=== PATIENT | female | born 1990 | race Caucasian/White ===

== ENCOUNTER 2023-12-23 15:41 | Inpatient (IN) | payer MEDICAID ==
[~2023-12-23] VITALS: Ht 157.5 cm; Wt 62.8 kg
[~2023-12-23 15:41] MED LIST: DOXY100C5 PO; FAMO-132 PO; PRED10TA PO
[2023-12-23 15:55] VITALS: BP_SYST 126; PULSE 106; RESP 22; TEMP 98.3; O2SAT 98
[2023-12-23 16:55] LABS: BASOPHILS % (AUTO) 0.1 % (0.0-2.0); EOSINOPHILS % (AUTO) 0.1 % (0.0-4.0); HEMATOCRIT 35.2 % (36-48); HEMOGLOBIN 12.1 g/dL (12.0-16.0); LYMPHOCYTES # (AUTO) 0.9 K/uL (1.0-5.5); LYMPHOCYTES % (AUTO) 7.4 % (20.5-51.5); MEAN CORPUSCULAR HEMOGLOBIN 32 pg (27-31); MEAN CORPUSCULAR HGB CONC 34 % (32-36); MEAN CORPUSCULAR VOLUME 92 fL (79.0-98.0); MONOCYTES # (AUTO) 0.3 K/uL (0.0-1.0); MONOCYTES % (AUTO) 2.5 % (1.7-9.3); NEUTROPHILS # (AUTO) 11.3 K/uL (1.8-7.7); NEUTROPHILS % (AUTO) 89.9 % (40.0-70.0); PLATELET COUNT (AUTO) 256 K/uL (130-430); RED BLOOD CELL COUNT(AUTO) 3.82 MIL/uL (4.2-6.2); RED CELL DISTRIBUTION WIDTH 14.8 % (9.0-15.0); WHITE BLOOD COUNT (AUTO) 12.5 K/uL (4.8-10.8)
[2023-12-23 17:08] LABS: BILIRUBIN,URINE NEGATIVE (NEGATIVE); BLOOD, URINE 2+ (NEGATIVE); CLARITY/URINE CLEAR (CLEAR); COLOR,URINE YELLOW (YELLOW); GLUCOSE,URINE NEGATIVE (NEGATIVE); KETONES,URINE NEGATIVE (NEGATIVE); LEUKOCYTE ESTERASE ,URINE NEGATIVE (NEGATIVE); NITRITE, URINE NEGATIVE (NEGATIVE); PROTEIN URINE 3+ (NEGATIVE); UROBILINOGEN,URINE 0.2 (0.2-1.0)
[2023-12-23 17:09] LABS: ALBUMIN 1.8 g/dL (3.4-4.8); BILIRUBIN,DIRECT 0.1 mg/dL (0.0-0.3); CALCIUM 8.3 mg/dL (8.4-11.0); CREATININE 0.88 mg/dL (0.55-1.30); POTASSIUM 4.1 mmol/L (3.5-5.1); TOTAL BILIRUBIN 0.2 mg/dL (0.0-1.0); TOTAL PROTEIN, SERUM 6.6 g/dL (6.4-8.3)
[2023-12-23 17:14] LABS: BACTERIA,URINE RARE /HPF (None Seen); MUCUS,URINE None Seen /LPF (None Seen); RBC,URINE 0-3 /HPF (0-3); WBC,URINE 0-3 /HPF (0-3)
[2023-12-23] MEDS ORDERED: PIPERACILLIN/TAZOBACTAM 3.375 GM/VIAL (ZOSYN) IV ONE (18:13)
[2023-12-23] MEDS: PIPERACILLIN/TAZO 3.375 GM in D5W 50 ML IV ONE (18:16)
[2023-12-23 18:24] LABS: INR 0.9 (0.8-1.2); PROTHROMBIN TIME 9.4 SECS (9.5-12.5)
[2023-12-23] MEDS: methylPREDNISolone SOD SUCC/PF 62.5 MG/ML VIAL IVP ONE (19:21)
[2023-12-23] MEDS ORDERED: HYDR200T80 PO (19:48)
[2023-12-23] MEDS ORDERED: PRED20TA (19:51)
[2023-12-23] MEDS ORDERED: MORPHINE 4 MG INJ. 4 MG/ML VIAL IVP PRN (22:00)
[2023-12-23] MEDS ORDERED: ONDANSETRON HCL 4 MG/2 ML VIAL IVP PRN (22:00)
[2023-12-24 01:18] VITALS: BP_SYST 117; PULSE 73; RESP 18; TEMP 97.4
[2023-12-24] MEDS ORDERED: PIPERACILLIN/TAZO 3.375 GM in NS 50 ML IV SCH (06:00)
[2023-12-24 06:30] LABS: BASOPHILS % (AUTO) 0.1 % (0.0-2.0); HEMATOCRIT 35.4 % (36-48); HEMOGLOBIN 12.1 g/dL (12.0-16.0); LYMPHOCYTES # (AUTO) 1.1 K/uL (1.0-5.5); LYMPHOCYTES % (AUTO) 12.1 % (20.5-51.5); MEAN CORPUSCULAR HEMOGLOBIN 32 pg (27-31); MEAN CORPUSCULAR HGB CONC 34 % (32-36); MEAN CORPUSCULAR VOLUME 94 fL (79.0-98.0); MONOCYTES # (AUTO) 0.2 K/uL (0.0-1.0); MONOCYTES % (AUTO) 2.4 % (1.7-9.3); NEUTROPHILS # (AUTO) 7.8 K/uL (1.8-7.7); NEUTROPHILS % (AUTO) 85.4 % (40.0-70.0); PLATELET COUNT (AUTO) 261 K/uL (130-430); RED BLOOD CELL COUNT(AUTO) 3.78 MIL/uL (4.2-6.2); RED CELL DISTRIBUTION WIDTH 14.8 % (9.0-15.0); WHITE BLOOD COUNT (AUTO) 9.1 K/uL (4.8-10.8)
[2023-12-24 06:46] LABS: ALBUMIN 1.7 g/dL (3.4-4.8); CALCIUM 8.1 mg/dL (8.4-11.0); CREATININE 0.7 mg/dL (0.55-1.30); POTASSIUM 4.6 mmol/L (3.5-5.1); TOTAL BILIRUBIN 0.2 mg/dL (0.0-1.0); TOTAL PROTEIN, SERUM 5.8 g/dL (6.4-8.3); URIC ACID 5.9 mg/dL (2.4-7.0)
[2023-12-24 08:02] VITALS: BP_SYST 100; PULSE 78; RESP 14; TEMP 97.2; O2SAT 96
[2023-12-24] MEDS: predniSONE 20 MG TABLET PO SCH (09:59)
[2023-12-24] MEDS: PANTOPRAZOLE SODIUM 40 MG TAB PO SCH (09:59)
[2023-12-24] MEDS: HYDROXYCHLOROQUINE SULFATE 200 MG TABLET PO SCH (09:59)
[2023-12-24 11:27] VITALS: BP_SYST 109; PULSE 84; RESP 16; TEMP 97.5; O2SAT 96
[2023-12-24] MEDS: ACETAMINOPHEN 325 MG TABLET PO PRN (13:59)
[2023-12-24 15:21] VITALS: BP_SYST 103; PULSE 73; RESP 16; TEMP 98.1; O2SAT 95
[2023-12-24 15:34] VITALS: BP_SYST 103; PULSE 80; RESP 16; TEMP 98.1; O2SAT 95
== END 2023-12-24 16:50 | disposition home or self-care (01) | DRG 346 ==
LOC: SED 15:41 → SMU 21:50
PROVIDERS: ADMIT Internal Medicine; ATTEND Internal Medicine
DX: M32.14 Glomerular disease in systemic lupus erythematosus (principal); E43 Unspecified severe protein-calorie malnutrition; R65.10 Systemic inflammatory response syndrome (SIRS) of non-infectious origin without acute organ dysfunction; N04.9 Nephrotic syndrome with unspecified morphologic changes; Z79.899 Other long term (current) drug therapy; Z88.2 Allergy status to sulfonamides; Z68.25 Body mass index [BMI] 25.0-25.9, adult
CPT/HCPCS: 36415; 71045; 76770; 80048; 80053; 80061; 80076; 81000; 81001; 81015; 83605; 83690; 84484; 84550; 84702; 85025; 85610; 85730; 87040; 87086; 93005; 96365; 96375; 99285; J2543; J2930; J7512

== ENCOUNTER 2024-01-26 12:17 | Emergency (ER) | payer MEDICAID ==
[~2024-01-26] VITALS: Ht 157.5 cm; Wt 68.0 kg
[~2024-01-26 12:17] MED LIST changes: -DOXY100C5 PO; -FAMO-132 PO; +HYDR200T80 PO; -PRED10TA PO; +PRED20TA
[2024-01-26 12:30] VITALS: BP_SYST 104; PULSE 123; RESP 18; TEMP 98.6; O2SAT 98
[2024-01-26] MEDS: ONDANSETRON 4 MG ODT TAB PO ONE (12:57)
[2024-01-26 13:01] LABS: BILIRUBIN,URINE NEGATIVE (NEGATIVE); BLOOD, URINE 2+ (NEGATIVE); CLARITY/URINE SLIGHTLY CLOUDY (CLEAR); COLOR,URINE Y (YELLOW); GLUCOSE,URINE NEGATIVE (NEGATIVE); KETONES,URINE NEGATIVE (NEGATIVE); LEUKOCYTE ESTERASE ,URINE NEGATIVE (NEGATIVE); NITRITE, URINE NEGATIVE (NEGATIVE); PROTEIN URINE 3+ (NEGATIVE); UROBILINOGEN,URINE 0.2 (0.2-1.0)
[2024-01-26 13:22] LABS: BACTERIA,URINE FEW /HPF (None Seen); WBC,URINE 0-3 /HPF (0-3)
[2024-01-26 13:29] LABS: BASOPHILS % (AUTO) 0.1 % (0.0-2.0); EOSINOPHILS % (AUTO) 0.1 % (0.0-4.0); HEMATOCRIT 42.9 % (36-48); HEMOGLOBIN 14.5 g/dL (12.0-16.0); LYMPHOCYTES # (AUTO) 1.9 K/uL (1.0-5.5); LYMPHOCYTES % (AUTO) 12.5 % (20.5-51.5); MEAN CORPUSCULAR HEMOGLOBIN 32 pg (27-31); MEAN CORPUSCULAR HGB CONC 34 % (32-36); MEAN CORPUSCULAR VOLUME 93 fL (79.0-98.0); MONOCYTES # (AUTO) 0.7 K/uL (0.0-1.0); MONOCYTES % (AUTO) 4.8 % (1.7-9.3); NEUTROPHILS # (AUTO) 12.3 K/uL (1.8-7.7); NEUTROPHILS % (AUTO) 82.5 % (40.0-70.0); PLATELET COUNT (AUTO) 349 K/uL (130-430); RED BLOOD CELL COUNT(AUTO) 4.59 MIL/uL (4.2-6.2); RED CELL DISTRIBUTION WIDTH 14.3 % (9.0-15.0); WHITE BLOOD COUNT (AUTO) 14.9 K/uL (4.8-10.8)
[2024-01-26] MEDS ORDERED: PRED10TA PO (13:32)
[2024-01-26] MEDS ORDERED: BELI200A SUBCUT (13:33)
[2024-01-26 13:34] LABS: SERUM HCG (QUALITATIVE) NEGATIVE (NEGATIVE)
[2024-01-26 13:37] LABS: ALANINE AMINOTRANSFERASE 27 U/L (12-78); ALBUMIN 1.5 g/dL (3.4-4.8); AMYLASE 51 U/L (0-100); ANION GAP 3 (5-15); ASPARTATE AMINOTRANSFERASE 20 U/L (10-37); BILIRUBIN,DIRECT < 0.1 mg/dL (0.0-0.3); CALCIUM 8.7 mg/dL (8.4-11.0); CARBON DIOXIDE 33 mmol/L (23-29); CHLORIDE 99 mmol/L (98-107); CREATININE 0.81 mg/dL (0.55-1.30); GFR AFRICAN AMERICAN 104 mL/min (>90); GFR NON AFRICAN-AMERICAN 86 mL/min (>90); GLUCOSE 82 mg/dL (74-106); LIPASE 27 U/L (16-77); POTASSIUM 3.6 mmol/L (3.5-5.1); SODIUM SERUM 135 mmol/L (136-145); TOTAL BILIRUBIN 0.3 mg/dL (0.0-1.0); TOTAL PROTEIN, SERUM 6.6 g/dL (6.4-8.3); UREA NITROGEN, BLOOD 8 mg/dL (8-21)
[2024-01-26] MEDS ORDERED: OMEP20CA15 PO (13:48)
[2024-01-26 13:58] VITALS: BP_SYST 108; PULSE 115; RESP 18; TEMP 98.6; O2SAT 94
== END 2024-01-26 13:58 | disposition home or self-care (01) ==
LOC: SED 12:17
DX: K29.70 Gastritis, unspecified, without bleeding (principal); R10.13 Epigastric pain; R11.2 Nausea with vomiting, unspecified; Z88.2 Allergy status to sulfonamides; Z79.899 Other long term (current) drug therapy
CPT/HCPCS: 99284; 76705; 80076; 80048; 81001; 82150; 84703; 83690; 85025; 36415; 81025; 83605; Q0162; 81000; 81015

== ENCOUNTER 2024-01-29 15:19 | Inpatient (IN) | payer MEDICAID ==
[~2024-01-29] VITALS: Ht 157.5 cm; Wt 61.4 kg
[~2024-01-29 15:19] MED LIST changes: +BELI200A SUBCUT; +OMEP20CA15 PO; +PRED10TA PO; -PRED20TA
[2024-01-29 16:11] VITALS: BP_SYST 110; PULSE 127; RESP 18; TEMP 98.6; O2SAT 95
[2024-01-29 17:47] LABS: BASOPHILS # (AUTO) 0.1 K/uL (0.0-0.2); BASOPHILS % (AUTO) 0.6 % (0.0-2.0); EOSINOPHILS % (AUTO) 0.1 % (0.0-4.0); HEMATOCRIT 39.9 % (36-48); HEMOGLOBIN 13.7 g/dL (12.0-16.0); LYMPHOCYTES # (AUTO) 1.5 K/uL (1.0-5.5); LYMPHOCYTES % (AUTO) 7.7 % (20.5-51.5); MEAN CORPUSCULAR HEMOGLOBIN 32 pg (27-31); MEAN CORPUSCULAR HGB CONC 34 % (32-36); MEAN CORPUSCULAR VOLUME 93 fL (79.0-98.0); MONOCYTES # (AUTO) 0.9 K/uL (0.0-1.0); MONOCYTES % (AUTO) 4.5 % (1.7-9.3); NEUTROPHILS # (AUTO) 16.9 K/uL (1.8-7.7); NEUTROPHILS % (AUTO) 87.1 % (40.0-70.0); PLATELET COUNT (AUTO) 428 K/uL (130-430); RED BLOOD CELL COUNT(AUTO) 4.29 MIL/uL (4.2-6.2); RED CELL DISTRIBUTION WIDTH 13.9 % (9.0-15.0); WHITE BLOOD COUNT (AUTO) 19.4 K/uL (4.8-10.8)
[2024-01-29 17:50] LABS: BILIRUBIN,URINE NEGATIVE (NEGATIVE); BLOOD, URINE TRACE (NEGATIVE); CLARITY/URINE CLEAR (CLEAR); COLOR,URINE YELLOW (YELLOW); GLUCOSE,URINE NEGATIVE (NEGATIVE); KETONES,URINE NEGATIVE (NEGATIVE); LEUKOCYTE ESTERASE ,URINE NEGATIVE (NEGATIVE); NITRITE, URINE NEGATIVE (NEGATIVE); PROTEIN URINE 3+ (NEGATIVE)
[2024-01-29 17:51] LABS: RBC,URINE 0-3 /HPF (0-3); SERUM HCG (QUALITATIVE) NEGATIVE (NEGATIVE); WBC,URINE 0-3 /HPF (0-3)
[2024-01-29 17:52] LABS: BACTERIA,URINE FEW /HPF (None Seen); MUCUS,URINE None Seen /LPF (None Seen)
[2024-01-29 17:56] LABS: ALBUMIN 1.4 g/dL (3.4-4.8); CALCIUM 8.7 mg/dL (8.4-11.0); CREATININE 0.82 mg/dL (0.55-1.30); TOTAL BILIRUBIN 0.3 mg/dL (0.0-1.0); TOTAL PROTEIN, SERUM 6.5 g/dL (6.4-8.3)
[2024-01-29 18:24] LABS: BILIRUBIN,DIRECT 0.1 mg/dL (0.0-0.3)
[2024-01-29] MEDS: NACL 0.9% 1,000 ML IV ONE (20:26)
[2024-01-29] MEDS: MORPHINE 4 MG INJ. 4 MG/ML VIAL IVP ONE (20:27)
[2024-01-29] MEDS: ONDANSETRON HCL 4 MG/2 ML VIAL IVP ONE (20:29)
[2024-01-29] MEDS ORDERED: IPRATROPIUM BROM 0.5 MG/2.5 ML VIAL.NEB (ATROVENT) INH PRN (22:30)
[2024-01-29] MEDS ORDERED: ACETAMINOPHEN 325 MG TABLET PO PRN (22:30)
[2024-01-29] MEDS ORDERED: ALBUTEROL SULFATE 0.083% 2.5 MG/3 ML VIAL.NEB INH PRN (22:30)
[2024-01-29] MEDS ORDERED: HYDROcodone/ACETAMIN 5-325 MG TAB (NORCO/ VICODIN) PO PRN (22:30)
[2024-01-29] MEDS ORDERED: ONDANSETRON HCL 4 MG/2 ML VIAL IVP PRN (22:30)
[2024-01-29] MEDS ORDERED: PIPERACILLIN/TAZOBACTAM 3.375 GM/VIAL (ZOSYN) IV ONE (23:19)
[2024-01-29] MEDS: PIPERACILLIN/TAZO 3.375 GM in D5W 50 ML IV SCH (23:27)
[2024-01-30] VITALS (9 sets, daily range): BP systolic 90–107; PULSE 54–129; RESP 15–20; TEMP 96.7–99; O2SAT 90–100
[2024-01-30] MEDS ORDERED: NALOXONE HCL 0.4 MG/ML AMP (NARCAN) IVP PRN (00:15)
[2024-01-30] MEDS: PIPERACILLIN/TAZOBACTAM 3.375 GM/VIAL (ZOSYN) IV ONE (05:24)
[2024-01-30 06:04] LABS: BASOPHILS % (AUTO) 0.1 % (0.0-2.0); HEMATOCRIT 35.9 % (36-48); HEMOGLOBIN 12.1 g/dL (12.0-16.0); LYMPHOCYTES # (AUTO) 1.5 K/uL (1.0-5.5); LYMPHOCYTES % (AUTO) 7.4 % (20.5-51.5); MEAN CORPUSCULAR HEMOGLOBIN 32 pg (27-31); MEAN CORPUSCULAR HGB CONC 34 % (32-36); MEAN CORPUSCULAR VOLUME 94 fL (79.0-98.0); MONOCYTES # (AUTO) 0.9 K/uL (0.0-1.0); MONOCYTES % (AUTO) 4.6 % (1.7-9.3); NEUTROPHILS # (AUTO) 18.2 K/uL (1.8-7.7); NEUTROPHILS % (AUTO) 87.9 % (40.0-70.0); PLATELET COUNT (AUTO) 355 K/uL (130-430); RED BLOOD CELL COUNT(AUTO) 3.83 MIL/uL (4.2-6.2); RED CELL DISTRIBUTION WIDTH 13.8 % (9.0-15.0); WHITE BLOOD COUNT (AUTO) 20.7 K/uL (4.8-10.8)
[2024-01-30 06:17] LABS: ALBUMIN 1.1 g/dL (3.4-4.8); CALCIUM 8.2 mg/dL (8.4-11.0); CREATININE 0.83 mg/dL (0.55-1.30); POTASSIUM 4.1 mmol/L (3.5-5.1); TOTAL BILIRUBIN 0.3 mg/dL (0.0-1.0); TOTAL PROTEIN, SERUM 5.6 g/dL (6.4-8.3)
[2024-01-30] MEDS: MORPHINE 2 MG/ML INJ. SYRINGE IVP PRN (10:21)
[2024-01-30] MEDS ORDERED: PANTOPRAZOLE SODIUM 40 MG/VIAL (PROTONIX) IVP SCH (12:00)
[2024-01-30] MEDS: PANTOPRAZOLE SODIUM 40 MG/VIAL (PROTONIX) IVP ONE (12:48)
[2024-01-30] MEDS ORDERED: BELIMUMAB 200 MG SUBCUT SCH (13:45)
[2024-01-30] MEDS: predniSONE 10 MG TABLET PO ONE (15:00)
[2024-01-30] MEDS: NACL 0.9% 1,000 ML IV ONE (21:26)
[2024-01-30] MEDS: NACL 0.9% 1,000 ML IV SCH (23:23)
[2024-01-31] VITALS (7 sets, daily range): BP systolic 93–103; PULSE 73–89; RESP 14–20; TEMP 96.3–97.6; O2SAT 95–100
[2024-01-31 06:19] LABS: PROTHROMBIN TIME 9.9 SECS (9.5-12.5)
[2024-01-31] MEDS: MEPERIDINE 100 MG INJ. 100 MG/ML VIAL ONE (07:51)
[2024-01-31] MEDS: MIDAZOLAM HCL 5 MG/5 ML VIAL ONE (07:52)
[2024-01-31] MEDS: predniSONE 10 MG TABLET PO SCH (09:00)
[2024-01-31] MEDS: HYDROXYCHLOROQUINE SULFATE 200 MG TABLET PO SCH (09:00)
[2024-01-31] MEDS: PANTOPRAZOLE SODIUM 40 MG/VIAL (PROTONIX) IVP SCH (09:54)
[2024-01-31] MEDS ORDERED: DIATR MEGLU/DIATRIZ SOD 30 ML SOLUTION PO ONE (11:14)
[2024-02-01 00:38] VITALS: BP_SYST 89; PULSE 90; TEMP 97.2; O2SAT 100
[2024-02-01 08:00] VITALS: BP_SYST 97; PULSE 82; RESP 17; TEMP 97.2; O2SAT 97; O2SAT 98
[2024-02-01 11:16] VITALS: O2SAT 97
[2024-02-01 12:01] VITALS: BP_SYST 99; PULSE 78; RESP 17; TEMP 97.1; O2SAT 99
[2024-02-01 14:28] LABS: HEMATOCRIT 36.3 % (36-48); HEMOGLOBIN 12.1 g/dL (12.0-16.0); LYMPHOCYTES # (AUTO) 0.7 K/uL (1.0-5.5); LYMPHOCYTES % (AUTO) 7.4 % (20.5-51.5); MEAN CORPUSCULAR HEMOGLOBIN 32 pg (27-31); MEAN CORPUSCULAR HGB CONC 34 % (32-36); MEAN CORPUSCULAR VOLUME 94 fL (79.0-98.0); MONOCYTES # (AUTO) 0.1 K/uL (0.0-1.0); MONOCYTES % (AUTO) 1.1 % (1.7-9.3); NEUTROPHILS % (AUTO) 91.5 % (40.0-70.0); PLATELET COUNT (AUTO) 378 K/uL (130-430); RED BLOOD CELL COUNT(AUTO) 3.84 MIL/uL (4.2-6.2); WHITE BLOOD COUNT (AUTO) 9.9 K/uL (4.8-10.8)
[2024-02-01 14:48] LABS: ALBUMIN 1.1 g/dL (3.4-4.8); CALCIUM 8.5 mg/dL (8.4-11.0); CREATININE 0.72 mg/dL (0.55-1.30); POTASSIUM 4.1 mmol/L (3.5-5.1); TOTAL BILIRUBIN 0.2 mg/dL (0.0-1.0); TOTAL PROTEIN, SERUM 5.8 g/dL (6.4-8.3)
[2024-02-01 16:01] VITALS: BP_SYST 97; PULSE 74; RESP 18; TEMP 97.9; O2SAT 99
[2024-02-01] MEDS ORDERED: BELIMUMAB 200 MG IV SCH (18:15)
[2024-02-01 20:00] VITALS: BP_SYST 98; PULSE 104; RESP 18; TEMP 96.7; O2SAT 97
[2024-02-02] VITALS (9 sets, daily range): BP systolic 94–109; PULSE 71–87; RESP 16–18; TEMP 96.8–97.4; O2SAT 96–99
[2024-02-02 12:07] LABS: AFP, TUMOR MARKER 1.8 ng/mL (0.0-6.4); CARBOHYDRATE AG 19-9 18 U/mL (0-35); CEA <0.6 ng/mL (0.0-4.7)
[2024-02-03] VITALS: BP_SYST 94; PULSE 68; RESP 16; TEMP 97.6; O2SAT 98
[2024-02-03 07:40] VITALS: BP_SYST 114; PULSE 72; RESP 14; TEMP 97.9; O2SAT 96
[2024-02-03] MEDS: MORPHINE 2 MG/ML INJ. SYRINGE IVP PRN (10:47)
[2024-02-03 11:56] VITALS: BP_SYST 113; PULSE 77; RESP 16; TEMP 97.8; O2SAT 98
[2024-02-03 12:00] VITALS: BP_SYST 113; PULSE 77; RESP 16; TEMP 97.8; O2SAT 98
== END 2024-02-03 13:25 | disposition home or self-care (01) | DRG 254 ==
LOC: SED 15:19 → STU 22:27
PROVIDERS: ADMIT Internal Medicine; ATTEND Internal Medicine
PROC: 0DB78ZX Excision of Stomach, Pylorus, Via Natural or Artificial Opening Endoscopic, Diagnostic (ICD-10-PCS; principal; 2024-01-31 12:30)
DX: K31.9 Disease of stomach and duodenum, unspecified (principal); E43 Unspecified severe protein-calorie malnutrition; M32.14 Glomerular disease in systemic lupus erythematosus; R65.10 Systemic inflammatory response syndrome (SIRS) of non-infectious origin without acute organ dysfunction; K59.00 Constipation, unspecified; Z88.2 Allergy status to sulfonamides; Z79.899 Other long term (current) drug therapy; Z68.24 Body mass index [BMI] 24.0-24.9, adult
CPT/HCPCS: 36415; 43239; 80048; 80053; 80076; 81000; 81001; 81015; 82105; 82150; 82378; 83605; 83690; 84703; 85025; 85610; 85730; 86301; 87040; 87081; 88305; 88312; 88313; 94070; 94760; 96361; 96374; 96375; 99285; G0378; J2175; J2250; J2270; J2405; J2470; J2543; J7060; J7512; Q9964; Q9967